=== PATIENT | male | born 1950 | race Caucasian/White ===

== ENCOUNTER 2019-03-02 16:12 | Inpatient (IN) | payer MEDICARE, OTHER ==
--- NOTE | 2019-03-02 17:16 | CR ---
[id number] RAD/RAD Humerus Left 2V EXAM: LEFT HUMERUS 2 VIEWS INDICATION: Left upper arm pain after a fall. COMPARISON: None. DISCUSSION: There is a comminuted mid diaphyseal fracture of the humerus with about one half shaft width of anterior-lateral displacement of the main distal segment. Osteopenia. Degenerative changes and chronic rotator cuff tear noted in the shoulder. IMPRESSION: 1. Acute comminuted and displaced mid humeral shaft fracture. Evan Toro MD 03/02/19 6400 Thank you for allowing us to participate in the care of your patient.
--- NOTE | 2019-03-02 17:20 | EDM.PDOC ---
ED HPI GENERAL MEDICAL PROBLEM - General Chief Complaint: Upper Extremity Injury/Pain Stated Complaint: FALL Time Seen by Provider: 03/02/19 17:11 Source of Information: Reports: Patient History Limitations: Reports: No Limitations - History of Present Illness INITIAL COMMENTS - FREE TEXT/NARRATIVE: Patient is a 68-year-old gentleman who presents to the emergency department this afternoon with a complaint of left upper extremity pain. Patient states that he tripped and fell in his home and landed on left arm. Patient does have a right lower extremity prosthesis, and chronic extensive arthritis with deformities. Pelvis is stable and patient denies striking head, loss of consciousness, dizziness, blurry vision, nausea, vomiting, bowel pain, or pain anywhere else. Onset: Sudden Onset Date: 03/02/19 Onset Time: 14:00 Duration: Hour(s): Location: Reports: Upper Extremity, Left Quality: Reports: Ache, Pressure Severity: Mild Improves with: Reports: None Worsens with: Reports: Movement Context: Reports: Trauma Associated Symptoms: Reports: No Other Symptoms Treatments DIRECTOR BUSINESS TRAVEL: Reports: Other Medication(s), Splint(s) left arm Pain Score (Numeric/FACES): 6 - Related Data Allergies Allergy/AdvReac Type Severity Reaction Status Date / Time bupropion [From Wellbutrin] Allergy Cannot Verified 03/02/19 16:25 Remember ciprofloxacin [From Cipro] Allergy Itching Verified 03/02/19 16:25 daptomycin Allergy Rash Verified 03/02/19 16:25 vancomycin Allergy Other Verified 03/02/19 16:25 Home Meds: Home Meds Albuterol [Proventil Neb Soln] 2.5 mg NEB TID PRN 08/04/16 [History] Allopurinol [Zyloprim] 300 mg PO DAILY 08/04/16 [History] Aspirin [Halfprin] 81 mg PO DAILY 08/04/16 [History] Citalopram Hydrobromide [Celexa] 40 mg PO DAILY 08/04/16 [History] Doxycycline [Vibramycin] 100 mg PO Q12HR 08/04/16 [History] Hydrocodone/Acetaminophen [Shelby 10-325] 1 tab PO Q4H PRN 08/04/16 [History] Hydroxychloroquine Sulfate [Plaquenil] 200 mg PO BID 08/04/16 [History] Indomethacin 25 mg PO BEDTIME 08/04/16 [History] Indomethacin 50 mg PO DAILY 08/04/16 [History] Metoclopramide [Reglan] 10 mg PO BEDTIME 08/04/16 [History] Metronidazole [IJD: metroNIDAZOLE] 500 mg PO TID 08/04/16 [History] Multivitamin [Multi-Vitamin Daily] 1 tab-cap PO DAILY 08/04/16 [History] Omeprazole 20 mg PO DAILY 08/04/16 [History] Ondansetron [Zofran ODT] 4 mg PO Q4H PRN 08/04/16 [History] Sulfamethoxazole/Trimethoprim [Bactrim Ds Tablet] 1 tab PO MOWEFR 08/04/16 [ History] Tamsulosin HCl [Flomax] 0.4 mg PO DAILY 08/04/16 [History] Vit B12/Intrins Fact/Fa Cmb #2 [Intrinsi [id number]] 500 mg PO DAILY 08/04/16 [ History] atorvaSTATin [Lipitor] 10 mg PO BEDTIME 08/04/16 [History] cefTRIAXone [Rocephin] 1 gm IM TUWETH 08/04/16 [History] Past Medical History HEENT History: Reports: Impaired Vision Cardiovascular History: Reports: High Cholesterol, Stents Genitourinary History: Reports: Renal Calculus, UTI, Recurrent Musculoskeletal History: Reports: Amputation, Arthritis, Fracture, Osteoarthritis, RA Hematologic History: Reports: Anemia - Past Surgical History HEENT Surgical History: Reports: None Male Surgical History: Reports: None Musculoskeletal Surgical History: Reports: Amputation Social & Family History - Family History Family Medical History: Noncontributory - Tobacco Use Smoking Status *Q: Current Every Day Smoker Years of Tobacco use: 50 Packs/Tins Daily: 0.5 Used Tobacco, but Quit: No Second Hand Smoke Exposure: No - Caffeine Use Caffeine Use: Reports: Soda - Recreational Drug Use Recreational Drug Use: No Review of Systems - Review of Systems Review Of Systems: ROS reveals no pertinent complaints other than HPI. Constitutional: Reports: No Symptoms Eyes: Reports: No Symptoms Ears: Reports: No Symptoms Nose: Reports: No Symptoms Mouth/Throat: Reports: No Symptoms Respiratory: Reports: No Symptoms Cardiovascular: Reports: No Symptoms GI/Abdominal: Reports: No Symptoms Genitourinary: Reports: No Symptoms Musculoskeletal: Reports: Arm Pain (Left upper arm) Skin: Reports: No Symptoms Neurological: Reports: No Symptoms Psychiatric: Reports: No Symptoms ED EXAM, GENERAL - Physical Exam Exam: See Below Exam Limited By: No Limitations General Appearance: Alert, WD/WN, No Apparent Distress Eye Exam: Bilateral Eye: Normal Inspection Nose: Normal Inspection, No Blood Throat/Mouth: Normal Inspection, Normal Oropharynx, No Airway Compromise Head: Atraumatic, Normocephalic Neck: Normal Inspection, Supple, Non-Tender, Full Range of Motion Respiratory/Chest: No Respiratory Distress, Lungs Clear, Normal Breath Sounds, No Accessory Muscle Use, Chest Non-Tender Cardiovascular: Regular Rate, Rhythm, No Murmur GI/Abdominal: Normal Bowel Sounds, Soft, Non-Tender, Pelvis Stable Back Exam: Normal Inspection, Full Range of Motion Extremities: Normal Capillary Refill, Arm Pain, Other (Left upper extremity from shoulder distal to elbow, firm and edematous. No signs of compartment syndrome at this point. Brachial and radial pulses palpable 2+.) Neurological: Alert, Oriented, CN II-XII Intact, Normal Cognition Psychiatric: Normal Affect, Normal Mood Skin Exam: Warm, Dry, Intact, Normal Color, No Rash Course - Vital Signs Last Recorded V/S: Last Vital Signs Temp 97.8 F 03/02/19 17:13 Pulse 73 03/02/19 17:13 Resp 16 03/02/19 17:13 BP 131/77 03/02/19 17:13 Pulse Ox 95 03/02/19 17:13 - Orders/Labs/Meds Orders: Active Orders 24 hr Category Date Time Status Humerus Lt [CR] Stat Exams 03/02/19 16:31 Ordered - Radiology Interpretation Free Text/Narrative:: X-ray shows left mid humeral shaft acute comminuted and displaced fracture - Re-Assessments/Exams Free Text/Narrative Re-Assessment/Exam: 03/02/19 18:29 Patient afebrile, vital signs stable, pain controlled. No signs of compartment syndrome, no neurovascular deficit of left upper extremity. Discussed case with Dr. De Oliveira, orthopedic surgeon from [facility]. Due to the fact that the roads are close because of the weather, he advised to put the patient in a sling and harness, and have the patient admitted at [facility] with a possible transferred tomorrow. Also discussed case with Fahad Wills from [facility], he will admit the patient and follow. Departure - Departure Time of Disposition: 18:32 Disposition: Admitted As Inpatient 64 Condition: Fair Clinical Impression: Fracture of humerus Qualifiers: Encounter type: initial encounter Humerus Location: shaft Fracture type: closed Fracture morphology: comminuted Fracture alignment: displaced Laterality : left Qualified Code(s): S42.352A - Displaced comminuted fracture of shaft of humerus, left arm, initial encounter for closed fracture - Discharge Information Referrals: PCP,Not In Area [Primary Care Provider] - - My Orders Last 24 Hours: My Active Orders 03/02/19 16:31 Humerus Lt [CR] Stat - Assessment/Plan Last 24 Hours: My Active Orders 03/02/19 16:31 Humerus Lt [CR] Stat Assessment:: Humeral fracture Plan: Admit inpatient to [place]
[2019-03-02] MEDS ORDERED: Indomethacin 25 MG Cap PO SCH (21:00)
[2019-03-02] MEDS ORDERED: Non-Formulary Medication 1 Each (Iron [Iron] 18 MG) PO SCH (21:00)
[2019-03-02] MEDS ORDERED: Ondansetron 4 MG Tab.DIS PO PRN (21:11)
[2019-03-02] MEDS ORDERED: Sodium Chloride 0.9% 10 ML Syringe FLUSH PRN (21:11)
[2019-03-02] MEDS: Acetaminophen/HYDROcodone 325-10 MG Tab PO PRN (21:22)
[2019-03-02] MEDS: Omeprazole 20 MG Cap.CR PO SCH (23:00)
[2019-03-02] MEDS: Tamsulosin 0.4 MG Cap.ER PO SCH (23:00)
[2019-03-02] MEDS: atorvaSTATin 10 MG Tab PO SCH (23:01)
[2019-03-02] MEDS: Naloxegol Oxalate 25 MG Tab PO SCH (23:01)
[2019-03-02] MEDS: DULoxetine 30 MG Cap PO SCH (23:01)
[2019-03-02] MEDS: Folic Acid 1 MG Tab PO SCH (23:01)
[2019-03-03] MEDS: Acetaminophen/HYDROcodone 325-10 MG Tab PO PRN ×2 (01:37→05:26)
[2019-03-03] MEDS ORDERED: Morphine 2 MG/ML Syringe IVPUSH PRN (05:40)
[2019-03-03] MEDS ORDERED: Morphine 4 MG/ML Syringe ONE ×2 (05:59→09:31)
[2019-03-03] MEDS ORDERED: Citalopram 20 MG Tab PO SCH (09:00)
[2019-03-03] MEDS ORDERED: Aspirin 81 MG Tab.EC PO SCH (09:00)
[2019-03-03] MEDS ORDERED: Non-Formulary Medication 1 Each (Varenicline Tartrate [Chantix] 1 MG) PO SCH (09:00)
[2019-03-03] MEDS: Naloxegol Oxalate 25 MG Tab PO SCH (09:39)
[2019-03-03] MEDS: Folic Acid 1 MG Tab PO SCH ×2 (09:40→20:47)
[2019-03-03] MEDS: DULoxetine 30 MG Cap PO SCH ×2 (09:40→20:45)
[2019-03-03] MEDS: Omeprazole 20 MG Cap.CR PO SCH ×2 (09:40→20:47)
[2019-03-03] MEDS: Allopurinol 100 MG Tab PO SCH (09:40)
[2019-03-03] MEDS: Hydroxychloroquine 200 MG Tab PO SCH (09:41)
[2019-03-03] MEDS: Indomethacin 50 MG Cap PO SCH (09:42)
[2019-03-03] MEDS ORDERED: Ketorolac 30 MG/ML SDV IM ONE (11:25)
[2019-03-03] MEDS ORDERED: Morphine 10 MG/ML Syringe IVPUSH ONE (11:38)
--- NOTE | 2019-03-03 12:28 | PCM.HP ---
H&P History of Present Illness - General Date of Service: 03/03/19 Admit Problem/Dx: Admission Diagnosis/Problem Admission Diagnosis/Problem Fracture of humerus Source of Information: Patient, Old Records, Provider, RN History Limitations: Reports: No Limitations left arm Pain Score (Numeric/FACES): 8 - Related Data Allergies/Adverse Reactions: Allergies Allergy/AdvReac Type Severity Reaction Status Date / Time bupropion [From Wellbutrin] Allergy Cannot Verified 03/02/19 16:25 Remember ciprofloxacin [From Cipro] Allergy Itching Verified 03/02/19 16:25 daptomycin Allergy Rash Verified 03/02/19 16:25 vancomycin Allergy Other Verified 03/02/19 16:25 Home Medications: Home Meds Allopurinol [Zyloprim] 300 mg PO DAILY 08/04/16 [History] Aspirin [Halfprin] 81 mg PO DAILY 08/04/16 [History] Citalopram Hydrobromide [Celexa] 60 mg PO DAILY 08/04/16 [History] Hydrocodone/Acetaminophen [Springer 10-325] 1 tab PO Q4H PRN 08/04/16 [History] Hydroxychloroquine Sulfate [Plaquenil] 200 mg PO DAILY 08/04/16 [History] Indomethacin 50 mg PO BEDTIME 08/04/16 [History] Multivitamin [Multi-Vitamin Daily] 1 tab-cap PO DAILY 08/04/16 [History] Omeprazole 20 mg PO BID 08/04/16 [History] Tamsulosin HCl [Flomax] 0.4 mg PO DAILY 08/04/16 [History] atorvaSTATin [Lipitor] 10 mg PO BEDTIME 08/04/16 [History] DULoxetine HCl [Duloxetine HCl] 30 mg PO BID 03/02/19 [History] Folic Acid 1 mg PO BID 03/02/19 [History] Indomethacin 100 mg PO DAILY 03/02/19 [History] Iron 18 mg PO Q48H 03/02/19 [History] Varenicline Tartrate [Chantix] 1 mg PO DAILY 03/02/19 [History] fentaNYL [Duragesic] 50 mcg TD Q48H 03/02/19 [History] Past Medical History HEENT History: Reports: Impaired Vision Cardiovascular History: Reports: High Cholesterol, Stents Genitourinary History: Reports: Renal Calculus, UTI, Recurrent Musculoskeletal History: Reports: Amputation, Arthritis, Fracture, Osteoarthritis, RA Hematologic History: Reports: Anemia - Past Surgical History HEENT Surgical History: Reports: None Male Surgical History: Reports: None Musculoskeletal Surgical History: Reports: Amputation Social & Family History - Family History Family Medical History: Noncontributory - Tobacco Use Smoking Status *Q: Current Every Day Smoker Years of Tobacco use: 50 Packs/Tins Daily: 0.5 Used Tobacco, but Quit: No Second Hand Smoke Exposure: No - Caffeine Use Caffeine Use: Reports: Soda - Recreational Drug Use Recreational Drug Use: No H&P Review of Systems - Review of Systems: Review Of Systems: See Below General: Reports: No Symptoms HEENT: Reports: No Symptoms Pulmonary: Reports: No Symptoms Cardiovascular: Reports: No Symptoms Gastrointestinal: Reports: No Symptoms Genitourinary: Reports: No Symptoms Musculoskeletal: Reports: Shoulder Pain Psychiatric: Denies: Confusion Neurological: Reports: Difficulty Walking, Gait Disturbance. Denies: Confusion , Change in Speech Hematologic/Lymphatic: Reports: No Symptoms Immunologic: Reports: No Symptoms Exam - Exam Exam: See Below - Vital Signs Vital Signs: Last Vital Signs Temp 97.5 F 03/03/19 06:55 Pulse 88 03/03/19 06:55 Resp 20 03/03/19 06:55 BP 127/90 03/03/19 06:55 Pulse Ox 96 03/03/19 07:55 Weight: 137 lb 8 oz - Exam Quality Assessment: No: Supplemental Oxygen, DVT Prophylaxis, Skin Breakdown General: Alert, Oriented, Cooperative, Mild Distress HEENT: Mucosa Moist & [place] Neck: Supple Lungs: Clear to Auscultation, Normal Respiratory Effort Cardiovascular: Regular Rate, Regular Rhythm GI/Abdominal Exam: Soft. No: Distended (Male) Exam: Deferred Rectal (Males) Exam: Deferred Back Exam: No: CVA Tenderness (L), CVA Tenderness (R) Extremities: Normal Capillary Refill, Joint Swelling, Arm Pain, Other (Right above knee amputation). No: Slow Capillary Refill Peripheral Pulses: 1+: Radial (R) (ulner pulses 2+ left, ) Skin: Warm, Dry, Intact Neurological: Normal Speech, Sensation Intact (Does have chronic decreased sensation into both hands from arthritic condition), Reflexes Unequal Neuro Extensive - Mental Status: Alert, Normal Mood/Affect, Normal Cognition Neuro Extensive - Motor, Sensory, Reflexes: No: Normal Gait Psychiatric: Alert. No: Anxious - Patient Data Lab Results Last 24 hrs: Laboratory Results - last 24 hr 03/03/19 Range/Units 11:50 WBC 10.86 H (5.00-10.00) 10^3/uL RBC 3.55 L (4.50-6.00) 10^6/uL Hgb 12.1 L (13.0-17.0) g/dL Hct 35.1 L (40.0-52.0) % MCV 98.9 H D (82.0-92.0) fL MCH 34.1 H (27.0-31.0) pg MCHC 34.5 (32.0-36.0) g/dL RDW 13.9 (11.5-14.5) % Plt Count 113 L (150-400) 10^3/uL MPV 10.9 H (7.4-10.4) fL Immature Gran % (Auto) 0.2 (0.0-5.0) % Neut % (Auto) 82.7 H (50.0-70.0) % Lymph % (Auto) 10.3 L (20.0-40.0) % Nye % (Auto) 6.4 (2.0-8.0) % Eos % (Auto) 0.1 L (1.0-3.0) % Baso % (Auto) 0.3 (0.0-1.0) % Immature Gran # (Auto) 0.02 (0.00-0.50) 10^3/uL Neut # (Auto) 8.98 H (2.50-7.00) 10^3/uL Lymph # (Auto) 1.12 (1.00-4.00) 10^3/uL Nye # (Auto) 0.70 (0.10-0.80) 10^3/uL Eos # (Auto) 0.01 L (0.10-0.30) 10^3/uL Baso # (Auto) 0.03 (0.00-0.10) 10^3/uL Result Diagrams: 03/03/19 11:50 03/04/19 07:10 Problem List Initiated/Reviewed/Updated: Yes Orders Last 24hrs: Active Orders 24 hr Category Date Time Status Patient Status [ADT] Routine ADT 03/02/19 18:38 Ordered Height and Weight [RC] UPON Care 03/02/19 21:11 Active Oxygen Therapy [RC] PRN Care 03/02/19 18:38 Active Oxygen Therapy [RC] PRN Care 03/02/19 21:11 Inactive Up With Assistance [RC] ASDIRECTED Care 03/02/19 21:11 Active Up to Chair [RC] ASDIRECTED Care 03/02/19 21:11 Active VTE/DVT Education [RC] PER UNIT ROUTINE Care 03/02/19 18:38 Active VTE/DVT Education [RC] PER UNIT ROUTINE Care 03/02/19 21:11 Inactive Vital Signs [RC] 0700,1500,2300 Care 03/02/19 18:38 Active Vital Signs [RC] Q4H Care 03/02/19 21:11 Inactive Regular Diet [DIET] Diet 03/03/19 Lunch Active Acetaminophen/HYDROcodone [Springer 325-10 MG] Med 03/02/19 20:58 Active 1 tab PO Q4H PRN Allopurinol [Zyloprim] Med 03/03/19 09:00 Active 300 mg PO DAILY Aspirin [Halfprin] Med 03/03/19 09:00 Active 81 mg PO DAILY Citalopram [Celexa] Med 03/03/19 09:00 Pending 60 mg PO DAILY DULoxetine [Cymbalta] Med 03/02/19 21:00 Active 30 mg PO BID Folic Acid Med 03/02/19 22:45 Active 1 mg PO BID Hydroxychloroquine [Plaquenil] Med 03/03/19 09:00 Active 200 mg PO DAILY Indomethacin [Indocin] Med 03/03/19 09:00 Active 100 mg PO DAILY Indomethacin [Indocin] Med 03/02/19 21:00 Active 50 mg PO BEDTIME Iron [Iron] Med 03/02/19 21:00 Pending 18 mg PO Q48H Morphine Sulfate Med 03/03/19 09:36 Active 3 mg IV Q1H PRN Naloxegol Oxalate [Movantik] Med 03/02/19 21:15 Active 25 mg PO DAILY Omeprazole Med 03/02/19 21:00 Active 20 mg PO BID Ondansetron [Zofran ODT] Med 03/02/19 21:11 Active 4 mg PO Q6H PRN Sodium Chloride 0.9% [Saline Flush] Med 03/02/19 21:11 Active 10 ml FLUSH Q8HR PRN Tamsulosin [Flomax] Med 03/02/19 22:30 Active 0.4 mg PO BEDTIME Varenicline Tartrate [Chantix] Med 03/03/19 09:00 Pending 1 mg PO DAILY atorvaSTATin [Lipitor] Med 03/02/19 21:00 Active 10 mg PO BEDTIME fentaNYL [Duragesic] Med 03/03/19 21:00 Active 50 mcg TRDERM Q48H Saline Lock Insert [OM.PC] Routine Oth 03/02/19 21:11 Ordered Resuscitation Status Routine Resus Stat 03/02/19 18:37 Ordered Medication Orders Hydrocodone Bitart/Acetaminophen (Springer 325-10 Mg) 1 tab PO Q4H PRN PRN Reason: see comment below Last Admin: 03/03/19 05:26 Dose: 1 tab Admin: 03/03/19 01:37 Dose: 1 tab Admin: 03/02/19 21:22 Dose: 1 tab Allopurinol (Zyloprim) 300 mg PO DAILY [facility] Last Admin: 03/03/19 09:40 Dose: 300 mg Aspirin (Halfprin) 81 mg PO DAILY [facility] Last Admin: 03/03/19 09:41 Dose: 81 mg Atorvastatin Calcium (Lipitor) 10 mg PO BEDTIME [facility] Last Admin: 03/02/19 23:01 Dose: 10 mg Citalopram Hydrobromide (Celexa) 60 mg PO DAILY [facility] Duloxetine HCl (Cymbalta) 30 mg PO BID [facility] Last Admin: 03/03/19 09:40 Dose: 30 mg Admin: 03/02/19 23:01 Dose: 30 mg Fentanyl (Duragesic) 50 mcg TRDERM Q48H [facility] Folic Acid (Folic Acid) 1 mg PO BID [facility] Last Admin: 03/03/19 09:40 Dose: 1 mg Admin: 03/02/19 23:01 Dose: 1 mg Hydroxychloroquine Sulfate (Plaquenil) 200 mg PO DAILY [facility] Last Admin: 03/03/19 09:41 Dose: 200 mg Indomethacin (Indocin) 50 mg PO BEDTIME [facility] Last Admin: 03/02/19 23:37 Dose: Indomethacin (Indocin) 100 mg PO DAILY [facility] Last Admin: 03/03/19 09:42 Dose: Morphine Sulfate (Morphine Sulfate) 3 mg IV Q1H PRN PRN Reason: Pain Naloxegol (Movantik) 25 mg PO DAILY [facility] Last Admin: 03/03/19 09:39 Dose: 25 mg Admin: 03/02/19 23:01 Dose: 25 mg Non-Formulary Medication (Iron [Iron]) 18 mg PO Q48H [facility] Non-Formulary Medication (Varenicline Tartrate [Chantix]) 1 mg PO DAILY [facility] Omeprazole (Omeprazole) 20 mg PO BID [facility] Last Admin: 03/03/19 09:40 Dose: 20 mg Admin: 03/02/19 23:00 Dose: 20 mg Ondansetron HCl (Zofran Odt) 4 mg PO Q6H PRN PRN Reason: nausea, able to take PO Sodium Chloride (Saline Flush) 10 ml FLUSH Q8HR PRN PRN Reason: keep vein open Last Admin: 03/03/19 06:07 Dose: 10 ml Tamsulosin HCl (Flomax) 0.4 mg PO BEDTIME [facility] Last Admin: 03/02/19 23:00 Dose: 0.4 mg Assessment/Plan Comment:: History of present illness 68-year-old disabled [place] was admitted last night through the ED after he tripped and fell fell at his home landing on his left arm sustaining a comminuted acute closed left humeral fracture with possible displacement. History of right [id number] amputation with current prosthesis. Patient has extensive and chronic arthritis with significant deformities and is on chronic opioid therapy. ED provider in viewing films consulted Dr. De Oliveira orthopedic surgeon [place] and the plan was for patient to be admitted locally here at [facility], pain management, neurovascular with sling and immobilization and be placed in holding capacity due to weather conditions with possible subsequent transfer this morning. In further conversation with Dr. De Oliveira this morning he felt possible outpatient referral next Wednesday with him or subsequent transfer to [place] if patient desired and not willing to care for himself at home. He normally doctors at the [facility] in [place] and would have to have preop rise a station for acute care stay and subsequent transfer to [place]. In consultation with the [facility] this morning they do not have the orthopedic surgeon a viable of surgical correction for this and window caser will be consulting with case management [facility] for any prior authorization required. Dr. De Oliveira' s team [place] [facility] suggested further radiographic images such as CT to further evaluate displacement. Calls throughout the night required ongoing morphine administration due to pain. Primary hospital problems Acute comminuted left humeral midshaft fracture likely displacement up to 50%, CT shoulder and left humerus Acute on chronic pain management needs Pain management, will place on morphine CONSULTING SERVICES MANAGER Fall risk Disposition Will remain in acute status as likely cannot be discharged as spouse does not feel she can take care of patient. Patient high risk for falls due to left upper extremity currently in sling. Morphine CONSULTING SERVICES MANAGER, neurovascular checks to left upper extremity. Dr. De Oliveira's team [place] [facility] suggested further radiographic images such as CT to further evaluate displacement and he also suggested patient could likely see him as outpatient next week.
[2019-03-03] MEDS ORDERED: Morphine 10 MG/ML Syringe ONE ×3 (14:43→21:28)
[2019-03-03] MEDS: Morphine PF 30 MG/30 ML PCA Vial IV SCH (15:50)
[2019-03-03] MEDS: Sodium Chloride 0.9% 250 ML IV SCH (16:05)
--- NOTE | 2019-03-03 16:46 | CT ---
[id number] CT/CT Humerus Left WO IV Exam: CT Humerus Left WO IV Clinical Data: LEFT HUMERAL FRACTURE COMPARISON: CORRELATION IS MADE WITH YESTERDAY'S PLAIN FILM FINDINGS: The left humeral fracture is diastatic, comminuted, and rotated. There is question of a pathologic fracture. If biopsy is considered, orthopedic opinion would be helpful. Review of yesterday's plain film raises the question of a blade of grass deformity in the distal left humeral diaphysis. The CT today demonstrates a soft tissue component within the medullary compartment of the fracture. This is either a mass or hemorrhage. Contrast CT or MRI may be helpful. IMPRESSION: COMMINUTED DIASTATIC ROTATED MID DIAPHYSEAL LEFT HUMERAL FRACTURE WITH A BUTTERFLY COMPONENT. QUESTION OF A PATHOLOGIC PROCESS. Artur Pratt MD 03/03/19 0680 Thank you for allowing us to participate in the care of your patient.
[2019-03-03] MEDS: Tamsulosin 0.4 MG Cap.ER PO SCH (20:46)
[2019-03-03] MEDS: atorvaSTATin 10 MG Tab PO SCH (20:47)
[2019-03-03] MEDS ORDERED: fentaNYL 50 MCG/HR Transdermal Patch TRDERM SCH (21:00)
[2019-03-03] MEDS ORDERED: Indomethacin 50 MG Cap PO SCH (21:00)
[2019-03-04] MEDS: Sodium Chloride 0.9% 250 ML IV SCH ×2 (01:29→11:21)
[2019-03-04 06:24] VITALS: BP 116/79
[2019-03-04] MEDS ORDERED: Morphine 10 MG/ML Syringe ONE (07:30)
[2019-03-04 08:08] LABS: ANION GAP 12.5 mmol/L (5-15); CHLORIDE,CL 105 mmol/L (98-115); SODIUM,NA 140 mmol/L (136-145)
[2019-03-04] MEDS: DULoxetine 30 MG Cap PO SCH (09:52)
[2019-03-04] MEDS: Hydroxychloroquine 200 MG Tab PO SCH (09:53)
[2019-03-04] MEDS: Allopurinol 100 MG Tab PO SCH (09:53)
[2019-03-04] MEDS: Naloxegol Oxalate 25 MG Tab PO SCH (09:54)
[2019-03-04] MEDS: Folic Acid 1 MG Tab PO SCH (09:54)
[2019-03-04] MEDS: Omeprazole 20 MG Cap.CR PO SCH (09:54)
[2019-03-04] MEDS: Indomethacin 50 MG Cap PO SCH (09:55)
[2019-03-04] MEDS: Morphine PF 30 MG/30 ML PCA Vial IV SCH ×2 (11:08)
--- NOTE | 2019-03-07 09:46 | PCM.DCSUM1 ---
Discharge Summary - Discharge Data Discharge Date: 03/04/19 Discharge Disposition: DC/Tfer to Acute Hospital 02 Condition: Good - Discharge Plan Home Medications: Home Meds Allopurinol [Zyloprim] 300 mg PO DAILY 08/04/16 [History] Aspirin [Halfprin] 81 mg PO DAILY 08/04/16 [History] Citalopram Hydrobromide [Celexa] 60 mg PO DAILY 08/04/16 [History] Hydrocodone/Acetaminophen [Northridge 10-325] 1 tab PO Q4H PRN 08/04/16 [History] Hydroxychloroquine Sulfate [Plaquenil] 200 mg PO DAILY 08/04/16 [History] Indomethacin 50 mg PO BEDTIME 08/04/16 [History] Multivitamin [Multi-Vitamin Daily] 1 tab-cap PO DAILY 08/04/16 [History] Omeprazole 20 mg PO BID 08/04/16 [History] Tamsulosin HCl [Flomax] 0.4 mg PO DAILY 08/04/16 [History] atorvaSTATin [Lipitor] 10 mg PO BEDTIME 08/04/16 [History] DULoxetine HCl [Duloxetine HCl] 30 mg PO BID 03/02/19 [History] Folic Acid 1 mg PO BID 03/02/19 [History] Indomethacin 100 mg PO DAILY 03/02/19 [History] Iron 18 mg PO Q48H 03/02/19 [History] Varenicline Tartrate [Chantix] 1 mg PO DAILY 03/02/19 [History] fentaNYL [Duragesic] 50 mcg TD Q48H 03/02/19 [History] Forms: ED Department Discharge Referrals: PCP,Not In Area [Primary Care Provider] - - Discharge Summary/Plan Comment DC Time >30 min.: Yes Discharge Summary/Plan Comment: Final diagnosis Acute comminuted left humeral midshaft fracture l Acute on chronic pain management needs Fall risk History Mr Crawley is a 68-year-old gentleman who was admitted through the ED after he tripped and fell fell at his home sustaining a mechanical fracture to his left humeral--buttefly commmuinuted acute closed left humeral fracture with possible displacement. History of right [id number] amputation with current prosthesis. Patient has extensive and chronic arthritis with significant deformities and is on chronic opioid therapy. ED provider in viewing films consulted Dr. De Oliveira orthopedic surgeon [place] and the plan was for patient to be admitted locally here at [facility], pain management, neurovascular with sling and immobilization and be placed in holding capacity due to weather conditions with possible subsequent transfer. displacement. Hospital course Hospital course went well, he was placed on a [employer] with low dose setting of morphine and he did well with this. He continue on his chronic fentanyl patch. He had frequent neurovascular checks of his left upper extremity without any deficit, he has chronic tingling of his left upper extremity into his lower fingers present on admission however no worsening, good capillary refill, Doppler demonstrated good strong radial pulses over pulses were palpable. Ice was applied. He remained in a sling. In further conversation with Dr. De Oliveira this morning he felt possible outpatient referral next Wednesday with him or subsequent transfer to [place] if patient desired and not willing to care for himself at home. [facility] doctors at the [facility] in [place] and would have to have preop rise a station for acute care stay and subsequent transfer to [place]. In consultation with the [facility] they did not have not have the orthopedic surgeon to perform surgical correction for this and counter caser [place] was to call [facility] for any prior authorization required. Dr. De Oliveira's team [facility] suggested further radiographic images such as CT to further evaluate. The morning of discharge patient informed me he had consulted with his [facility] surgeon and his VA surgeon suggested he go to [facility] for possible surgery. Consulted with the hospitalist team [place] [address] Luque she accepted the patient via ambulance transport for orthopedic consultation for possible surgical consideration. - General Info Functional Status: Reports: Pain Controlled, Tolerating Diet, Urinating. Denies : Ambulating, New Symptoms - Review of Systems General: Reports: No Symptoms HEENT: Reports: No Symptoms Pulmonary: Reports: No Symptoms Cardiovascular: Reports: No Symptoms Gastrointestinal: Reports: No Symptoms Musculoskeletal: Reports: Arm Pain (Mild left arm pain), Joint Swelling. Denies : Shoulder Pain Neurological: Reports: Other (Strong left femoral pulse, radial pulse strong Doppler) Psychiatric: Reports: No Symptoms - Patient Data Vitals - Most Recent: Last Vital Signs Temp 98.2 F 03/04/19 06:23 Pulse 97 03/04/19 06:23 Resp 16 03/04/19 06:23 BP 116/79 03/04/19 06:23 Pulse Ox 97 03/04/19 06:23 Weight - Most Recent: 137 lb 8 oz Med Orders - Current: Current Medications Discontinued Medications Hydrocodone Bitart/Acetaminophen (Northridge 325-10 Mg) 1 tab PO Q4H PRN PRN Reason: see comment below Last Admin: 03/03/19 05:26 Dose: 1 tab Allopurinol (Zyloprim) 300 mg PO DAILY [facility] Last Admin: 03/04/19 09:53 Dose: 300 mg Aspirin (Halfprin) 81 mg PO DAILY [facility] Last Admin: 03/03/19 09:41 Dose: 81 mg Atorvastatin Calcium (Lipitor) 10 mg PO BEDTIME [facility] Last Admin: 03/03/19 20:47 Dose: 10 mg Citalopram Hydrobromide (Celexa) 60 mg PO DAILY [facility] Duloxetine HCl (Cymbalta) 30 mg PO BID [facility] Last Admin: 03/04/19 09:52 Dose: 30 mg Fentanyl (Duragesic) 50 mcg TRDERM Q48H [facility] Last Admin: 03/03/19 20:45 Dose: 50 mcg Folic Acid (Folic Acid) 1 mg PO BID [facility] Last Admin: 03/04/19 09:54 Dose: 1 mg Hydroxychloroquine Sulfate (Plaquenil) 200 mg PO DAILY [facility] Last Admin: 03/04/19 09:53 Dose: 200 mg Sodium Chloride (Normal Saline) 250 mls @ 25 mls/hr IV ASDIRECTED [facility] Last Admin: 03/04/19 11:21 Dose: 25 mls/hr Indomethacin (Indocin) 50 mg PO BEDTIME [facility] Last Admin: 03/02/19 23:37 Dose: Not Given Indomethacin (Indocin) 100 mg PO DAILY [facility] Last Admin: 03/04/19 09:55 Dose: Not Given Indomethacin (Indocin) 50 mg PO BEDTIME [facility] Last Admin: 03/03/19 20:50 Dose: 50 mg Morphine Sulfate (Morphine) 3 mg IVPUSH Q1H PRN PRN Reason: Pain Morphine Sulfate (Morphine) Confirm Administered Dose 4 mg .ROUTE .STK-MED ONE Stop: 03/03/19 06:00 Last Admin: 03/03/19 06:17 Dose: Not Given Morphine Sulfate (Morphine Sulfate) 3 mg IV Q1H PRN PRN Reason: Pain Last Admin: 03/03/19 09:34 Dose: 3 mg Morphine Sulfate (Morphine) Confirm Administered Dose 4 mg .ROUTE .STK-MED ONE Stop: 03/03/19 09:32 Last Admin: 03/03/19 09:43 Dose: Not Given Morphine Sulfate (Morphine Sulfate) 3 mg IV Q1H PRN PRN Reason: Pain Last Admin: 03/03/19 14:30 Dose: 3 mg Morphine Sulfate (Morphine) 5 mg IVPUSH ONETIME ONE Stop: 03/03/19 11:39 Last Admin: 03/03/19 12:15 Dose: 5 mg Morphine Sulfate (Morphine Paramedical Aide 30 Mg In 30 Ml) 0 mg IV ASDIRECTED [facility]; Protocol Last Admin: 03/04/19 11:08 Dose: 30 mg Morphine Sulfate (Morphine) Confirm Administered Dose 30 mg .ROUTE .STK-MED ONE Stop: 03/03/19 14:44 Last Admin: 03/03/19 16:08 Dose: Not Given Morphine Sulfate (Morphine) Confirm Administered Dose 10 mg .ROUTE .STK-MED ONE Stop: 03/03/19 21:24 Last Admin: 03/04/19 00:02 Dose: 10 mg Morphine Sulfate (Morphine) Confirm Administered Dose 20 mg .ROUTE .STK-MED ONE Stop: 03/03/19 21:29 Last Admin: 03/04/19 00:03 Dose: 20 mg Morphine Sulfate (Morphine) Confirm Administered Dose 30 mg .ROUTE .STK-MED ONE Stop: 03/04/19 07:31 Last Admin: 03/04/19 09:55 Dose: Not Given Naloxegol (Movantik) 25 mg PO DAILY [facility] Last Admin: 03/04/19 09:54 Dose: 25 mg Non-Formulary Medication (Iron [Iron]) 18 mg PO Q48H [facility] Non-Formulary Medication (Varenicline Tartrate [Chantix]) 1 mg PO DAILY [facility] Omeprazole (Omeprazole) 20 mg PO BID [facility] Last Admin: 03/04/19 09:54 Dose: 20 mg Ondansetron HCl (Zofran Odt) 4 mg PO Q6H PRN PRN Reason: nausea, able to take PO Sodium Chloride (Saline Flush) 10 ml FLUSH Q8HR PRN PRN Reason: keep vein open Last Admin: 03/03/19 06:07 Dose: 10 ml Tamsulosin HCl (Flomax) 0.4 mg PO BEDTIME [facility] Last Admin: 03/03/19 20:46 Dose: 0.4 mg - Exam Quality Assessment: Denies: Supplemental Oxygen General: Reports: Alert, Oriented Neck: Reports: Supple Lungs: Reports: Clear to Auscultation Cardiovascular: Reports: Regular Rate, Regular Rhythm GI/Abdominal Exam: Soft Extremities: Arm Pain, Other (Strong left ulnar pulse, radial pulse strong audible on Doppler good capillary refill). No: Pedal Edema, Slow Capillary Refill, Increased Warmth
== END 2019-03-04 14:10 | DRG 563 ==
LOC: KA.ED 16:12 → KA.MS 19:00
PROVIDERS: ADMIT Physician Assistant Surgical; ATTEND Family Medicine
DX: S42.352A Displaced comminuted fracture of shaft of humerus, left arm, initial encounter for closed fracture (principal); M19.91 Primary osteoarthritis, unspecified site; G89.29 Other chronic pain; H54.7 Unspecified visual loss; E78.00 Pure hypercholesterolemia, unspecified; M06.9 Rheumatoid arthritis, unspecified; D64.9 Anemia, unspecified; F17.210 Nicotine dependence, cigarettes, uncomplicated; W01.0XXA Fall on same level from slipping, tripping and stumbling without subsequent striking against object, initial encounter; Z89.511 Acquired absence of right leg below knee; Z91.81 History of falling; Z88.1 Allergy status to other antibiotic agents; Z88.8 Allergy status to other drugs, medicaments and biological substances; Z79.82 Long term (current) use of aspirin; Z95.5 Presence of coronary angioplasty implant and graft; Z87.442 Personal history of urinary calculi; Z87.440 Personal history of urinary (tract) infections
CPT/HCPCS: 36415; 73060-LT; 73200-LT; 80048; 85025; 99285-25; A9270-GY; J2270; J2274; J7050

== ENCOUNTER 2022-06-25 15:18 | Emergency (ER) | payer OTHER, MEDICARE ==
[2022-06-25] MEDS ORDERED: Sodium Chloride 0.9% 10 ML Syringe FLUSH PRN (15:37)
[2022-06-25 16:11] LABS: ANION GAP 12.4 mmol/L (5-15); CHLORIDE,CL 107 mmol/L (98-107); SODIUM,NA 142 mmol/L (136-145)
[2022-06-25 16:14] LABS: ESTIMATED GFR 97 mL/min (>=60)
[2022-06-25] MEDS: Sodium Chloride 0.9% 1,000 ML IV ONE (17:16)
[2022-06-25 17:19] VITALS: BP 135/72; PULSE 75
== END 2022-06-25 18:10 | disposition home or self-care (01) ==
LOC: KA.ED 15:18
DX: N20.0 Calculus of kidney (principal); N30.01 Acute cystitis with hematuria; Z88.6 Allergy status to analgesic agent; Z88.1 Allergy status to other antibiotic agents; Z79.899 Other long term (current) drug therapy; Z79.82 Long term (current) use of aspirin
CPT/HCPCS: 36415; 71045; 74176; 80053; 81001; 83605; 85025; 87040; 87086; 96360; 99284; 99284-25; J7030

== ENCOUNTER 2022-10-14 08:14 | Emergency (ER) | payer MEDICARE, OTHER ==
[2022-10-14 08:36] VITALS: BP 126/75; PULSE 84
== END 2022-10-14 09:20 | disposition home or self-care (01) ==
LOC: KA.ED 08:14
DX: S80.11XA Contusion of right lower leg, initial encounter (principal); T87.89 Other complications of amputation stump; E78.00 Pure hypercholesterolemia, unspecified; Z79.899 Other long term (current) drug therapy; Z88.8 Allergy status to other drugs, medicaments and biological substances; W18.30XA Fall on same level, unspecified, initial encounter
CPT/HCPCS: 99283

== ENCOUNTER 2023-01-08 05:13 | Emergency (ER) | payer OTHER ==
[2023-01-08 06:35] LABS: ANION GAP 7.6 mmol/L (5-15); CHLORIDE,CL 99 mmol/L (98-107); SODIUM,NA 138 mmol/L (136-145)
[2023-01-08 06:37] LABS: ESTIMATED GFR 99 mL/min (>=60)
[2023-01-08 10:14] VITALS: BP 135/84; PULSE 65
== END 2023-01-08 10:15 | disposition swing bed (61) ==
LOC: KA.ED 05:13
DX: U07.1 COVID-19 (principal); M45.9 Ankylosing spondylitis of unspecified sites in spine; F11.20 Opioid dependence, uncomplicated; R53.1 Weakness; E78.00 Pure hypercholesterolemia, unspecified; I10 Essential (primary) hypertension; F17.210 Nicotine dependence, cigarettes, uncomplicated; Z88.5 Allergy status to narcotic agent; Z88.1 Allergy status to other antibiotic agents; Z88.8 Allergy status to other drugs, medicaments and biological substances; Z79.82 Long term (current) use of aspirin; Z79.899 Other long term (current) drug therapy; Z96.651 Presence of right artificial knee joint
CPT/HCPCS: 36415; 71045; 80048; 81001; 85025; 99284

== ENCOUNTER 2023-01-08 09:59 | Inpatient (IN) | payer MEDICARE ==
[2023-01-08] MEDS ORDERED: Acetaminophen 325 MG Tab PO PRN (12:59)
[2023-01-08] MEDS ORDERED: Acetaminophen/HYDROcodone 325-10 MG Tab PO PRN (14:12)
[2023-01-08] MEDS ORDERED: INDOMETHACIN 50 MG PO SCH (14:30)
[2023-01-08] MEDS: DULoxetine 30 MG Cap PO SCH ×2 (15:07→20:22)
[2023-01-08] MEDS: Citalopram 20 MG Tab PO SCH (15:08)
[2023-01-08] MEDS: Ascorbic Acid 500 MG Tab PO SCH (15:08)
[2023-01-08] MEDS: Finasteride 5 MG Tab PO SCH (15:08)
[2023-01-08] MEDS: Gabapentin 300 MG Cap PO SCH ×2 (15:08→20:23)
[2023-01-08] MEDS: Aspirin 81 MG Tab.EC PO SCH (15:09)
[2023-01-08] MEDS: Cyanocobalamin (Vitamin B12) 500 MCG Tab PO SCH (15:09)
[2023-01-08] MEDS: lamoTRIgine 100 MG Tab PO SCH ×2 (15:09→20:21)
[2023-01-08] MEDS: Ferrous Sulfate 325 MG Tab PO SCH (15:09)
[2023-01-08] MEDS: Nicotine 14 MG/24 Hr Patch TOP SCH (15:11)
[2023-01-08] MEDS: Nirmatrelvir/Ritonavir 150 MG/100 MG Dose Pack PO SCH ×2 (16:03→20:21)
[2023-01-08] MEDS: Omeprazole 20 MG Cap.CR PO SCH (17:04)
[2023-01-08] MEDS: Calcium Citrate/Vitamin D3 315 MG-250 Unit Tab PO SCH (20:21)
[2023-01-08] MEDS: Lutein/Minerals/Vitamins A, C & E Tab PO SCH (20:22)
[2023-01-08] MEDS: Carboxymethylcellulose Sodium 0.5% Ophth Soln 15 ML Bottle EYEBOTH SCH (20:23)
[2023-01-08] MEDS ORDERED: Tamsulosin 0.4 MG Cap.ER PO SCH (21:00)
[2023-01-09] MEDS: Omeprazole 20 MG Cap.CR PO SCH ×2 (06:00→17:09)
[2023-01-09] MEDS: lamoTRIgine 100 MG Tab PO SCH ×3 (08:06→20:18)
[2023-01-09] MEDS: DULoxetine 30 MG Cap PO SCH ×2 (08:07→20:20)
[2023-01-09] MEDS: Aspirin 81 MG Tab.EC PO SCH (08:07)
[2023-01-09] MEDS: Cholecalciferol (Vitamin D3) 25 MCG Tab PO SCH (08:07)
[2023-01-09] MEDS: Gabapentin 300 MG Cap PO SCH ×2 (08:09→20:19)
[2023-01-09] MEDS: Finasteride 5 MG Tab PO SCH (08:09)
[2023-01-09] MEDS: Citalopram 20 MG Tab PO SCH (08:09)
[2023-01-09] MEDS: amLODIPine 5 MG Tab PO SCH ×2 (08:10→12:44)
[2023-01-09] MEDS: Folic Acid 1 MG Tab PO SCH (08:10)
[2023-01-09] MEDS: Lutein/Minerals/Vitamins A, C & E Tab PO SCH ×2 (08:13→20:21)
[2023-01-09] MEDS: Nirmatrelvir/Ritonavir 150 MG/100 MG Dose Pack PO SCH ×3 (08:14→20:15)
[2023-01-09] MEDS: Nicotine 14 MG/24 Hr Patch TOP SCH (08:15)
[2023-01-09] MEDS: Carboxymethylcellulose Sodium 0.5% Ophth Soln 15 ML Bottle EYEBOTH SCH ×2 (08:28→20:34)
[2023-01-09] MEDS: Cephalexin 250 MG Cap PO SCH ×2 (08:32→12:29)
[2023-01-09] MEDS: Calcium Citrate/Vitamin D3 315 MG-250 Unit Tab PO SCH (20:21)
[2023-01-09] MEDS: fentaNYL 50 MCG/HR Transdermal Patch TOP SCH (20:23)
[2023-01-10] MEDS: Omeprazole 20 MG Cap.CR PO SCH ×2 (06:04→16:51)
[2023-01-10] MEDS: Gabapentin 300 MG Cap PO SCH ×2 (08:05→21:06)
[2023-01-10] MEDS: Cephalexin 250 MG Cap PO SCH (08:05)
[2023-01-10] MEDS: Cholecalciferol (Vitamin D3) 25 MCG Tab PO SCH (08:09)
[2023-01-10] MEDS: Folic Acid 1 MG Tab PO SCH (08:09)
[2023-01-10] MEDS: Finasteride 5 MG Tab PO SCH (08:09)
[2023-01-10] MEDS: Citalopram 20 MG Tab PO SCH (08:10)
[2023-01-10] MEDS: amLODIPine 5 MG Tab PO SCH (08:10)
[2023-01-10] MEDS: DULoxetine 30 MG Cap PO SCH ×2 (08:11→21:07)
[2023-01-10] MEDS: Aspirin 81 MG Tab.EC PO SCH (08:11)
[2023-01-10] MEDS: Lutein/Minerals/Vitamins A, C & E Tab PO SCH ×2 (08:12→21:06)
[2023-01-10] MEDS: Nicotine 14 MG/24 Hr Patch TOP SCH (08:12)
[2023-01-10] MEDS: Carboxymethylcellulose Sodium 0.5% Ophth Soln 15 ML Bottle EYEBOTH SCH ×2 (08:22→21:08)
[2023-01-10] MEDS: lamoTRIgine 100 MG Tab PO SCH ×2 (08:32→21:05)
[2023-01-10] MEDS: Calcium Citrate/Vitamin D3 315 MG-250 Unit Tab PO SCH (21:05)
[2023-01-11] MEDS: Omeprazole 20 MG Cap.CR PO SCH ×2 (05:59→16:33)
[2023-01-11] MEDS: Finasteride 5 MG Tab PO SCH (08:07)
[2023-01-11] MEDS: DULoxetine 30 MG Cap PO SCH ×2 (08:07→20:07)
[2023-01-11] MEDS: Cephalexin 250 MG Cap PO SCH (08:07)
[2023-01-11] MEDS: Citalopram 20 MG Tab PO SCH (08:08)
[2023-01-11] MEDS: Ascorbic Acid 500 MG Tab PO SCH (08:08)
[2023-01-11] MEDS: Gabapentin 300 MG Cap PO SCH ×2 (08:08→20:08)
[2023-01-11] MEDS: lamoTRIgine 100 MG Tab PO SCH ×2 (08:08→20:07)
[2023-01-11] MEDS: Ferrous Sulfate 325 MG Tab PO SCH (08:08)
[2023-01-11] MEDS: Cyanocobalamin (Vitamin B12) 500 MCG Tab PO SCH (08:08)
[2023-01-11] MEDS: Cholecalciferol (Vitamin D3) 25 MCG Tab PO SCH (08:08)
[2023-01-11] MEDS: Folic Acid 1 MG Tab PO SCH (08:09)
[2023-01-11] MEDS: Nicotine 14 MG/24 Hr Patch TOP SCH (08:09)
[2023-01-11] MEDS: Aspirin 81 MG Tab.EC PO SCH (08:09)
[2023-01-11] MEDS: Carboxymethylcellulose Sodium 0.5% Ophth Soln 15 ML Bottle EYEBOTH SCH ×4 (08:10→20:30)
[2023-01-11] MEDS: Lutein/Minerals/Vitamins A, C & E Tab PO SCH ×2 (08:11→20:12)
[2023-01-11] MEDS: amLODIPine 5 MG Tab PO SCH (08:11)
[2023-01-11] MEDS: Calcium Citrate/Vitamin D3 315 MG-250 Unit Tab PO SCH (20:07)
[2023-01-11] MEDS: fentaNYL 50 MCG/HR Transdermal Patch TOP SCH (20:10)
[2023-01-11] MEDS ORDERED: Tamsulosin 0.4 MG Cap.ER PO SCH (21:00)
[2023-01-12] MEDS: Omeprazole 20 MG Cap.CR PO SCH (06:19)
[2023-01-12] MEDS: DULoxetine 30 MG Cap PO SCH (08:04)
[2023-01-12] MEDS: Finasteride 5 MG Tab PO SCH (08:05)
[2023-01-12] MEDS: Gabapentin 300 MG Cap PO SCH (08:05)
[2023-01-12] MEDS: amLODIPine 5 MG Tab PO SCH (08:05)
[2023-01-12] MEDS: Aspirin 81 MG Tab.EC PO SCH (08:05)
[2023-01-12] MEDS: Citalopram 20 MG Tab PO SCH (08:05)
[2023-01-12 08:06] VITALS: BP 115/82
[2023-01-12] MEDS: lamoTRIgine 100 MG Tab PO SCH (08:06)
[2023-01-12] MEDS: Folic Acid 1 MG Tab PO SCH (08:06)
[2023-01-12] MEDS: Cephalexin 250 MG Cap PO SCH (08:06)
[2023-01-12] MEDS: Cholecalciferol (Vitamin D3) 25 MCG Tab PO SCH (08:06)
[2023-01-12] MEDS: Carboxymethylcellulose Sodium 0.5% Ophth Soln 15 ML Bottle EYEBOTH SCH (08:07)
[2023-01-12] MEDS: Lutein/Minerals/Vitamins A, C & E Tab PO SCH (08:07)
[2023-01-12] MEDS: Nicotine 14 MG/24 Hr Patch TOP SCH (08:23)
[2023-01-12 08:25] VITALS: PULSE 80
== END 2023-01-12 09:21 | disposition home or self-care (01) | DRG 947 ==
LOC: KA.MS 09:59
PROVIDERS: ADMIT Nurse Practitioner Family; ATTEND Nurse Practitioner Family
DX: R53.1 Weakness (principal); U07.1 COVID-19; F11.20 Opioid dependence, uncomplicated; M45.9 Ankylosing spondylitis of unspecified sites in spine; G89.29 Other chronic pain; M06.9 Rheumatoid arthritis, unspecified; F17.200 Nicotine dependence, unspecified, uncomplicated; H54.7 Unspecified visual loss; E78.00 Pure hypercholesterolemia, unspecified; K21.9 Gastro-esophageal reflux disease without esophagitis; M19.90 Unspecified osteoarthritis, unspecified site; E55.9 Vitamin D deficiency, unspecified; D64.9 Anemia, unspecified; Z89.611 Acquired absence of right leg above knee; Z88.1 Allergy status to other antibiotic agents; Z88.5 Allergy status to narcotic agent; Z79.82 Long term (current) use of aspirin; Z79.899 Other long term (current) drug therapy
CPT/HCPCS: 97161-GP; 97530-GP; A9270-GY